=== PATIENT | male | born 1940 | race African-American/Black ===

== ENCOUNTER 2018-06-08 12:25 | Outpatient (CLI) | payer MEDICARE ==
[~2018-06-08] VITALS: Ht 170.2 cm; Wt 89.1 kg
[2018-06-08 14:05] VITALS: BP 149/84; Ht 170.2 cm; Wt 89.1 kg
--- NOTE | 2018-06-08 16:20 | NUR ---
DR SAHA CONTACTED BY PHONE REGARDING PATIENT'S HX OF CHF AND RISK FOR FLUID OVERLOAD WITH BLOOD TRANSFUSION. ORDER RECEIVED FOR LASIX IV IN BETWEEN UNITS
--- NOTE | 2018-06-08 17:30 | NUR ---
SECOND UNIT PRBC'S TRANSFUSING WITHOUT DIFFICULTY TO RIGHT AC PIV. PATIENT DENIES ANY COMPLAINTS, NO SIGNS OR SYMPTOMS NOTED AT THIS TIME OF TRANSFUSION REACTION
== END 2018-06-08 19:10 | disposition home or self-care (01) ==
LOC: D.OPS 12:25
PROVIDERS: ATTEND Family Medicine
DX: D64.9 Anemia, unspecified (principal)